=== PATIENT | female | born 1955 | race Caucasian/White ===

== ENCOUNTER 2016-06-15 20:47 | Emergency (ER) | payer MEDICAID ==
[~2016-06-15] VITALS: Ht 152.4 cm; Wt 64.4 kg
[2016-06-15 21:01] VITALS: BP 150/79
[2016-06-15] MEDS ORDERED: ALPRAZOLAM0.5 M3 PO (21:05)
[2016-06-15] MEDS ORDERED: OMEPRAZOLE DR20 M1 PO (21:06)
--- NOTE | 2016-06-15 21:42 | NUR ---
PT TAKEN TO BED 3
--- NOTE | 2016-06-15 22:10 | NUR ---
61Y FEMALE BIB DAUGHTER C/O OF RUQ PAIN RAD TO BACK. DENIES N/V/D PAIN 8/10 IN SCALE.
[2016-06-15] MEDS ORDERED: KETOROLAC 30 MG/ML VIAL IM ONE (22:20)
[2016-06-16 00:40] VITALS: BP 139/85
--- NOTE | 2016-06-16 00:40 | NUR ---
Patient discharged with v/s stable. Written and verbal after care instructions given and explained BY DR VILLANUEVA. Patient alert, oriented and verbalized understanding of instructions. Ambulatory with steady gait. All questions addressed prior to discharge. ID band removed. Patient advised to follow up with PMD. Rx of BENTYL given. Patient educated on indication of medication including possible reaction and side effects. Opportunity to ask questions provided and answered.
== END 2016-06-16 00:40 | disposition home or self-care (01) ==
LOC: MED 20:47
DX: R10.9 Unspecified abdominal pain (principal)
CPT/HCPCS: 36415; 74176; 80053; 81001; 83690; 85025; 96372; 99285; J1885

== ENCOUNTER 2016-06-23 19:25 | Emergency (ER) | payer MEDICAID ==
[~2016-06-23] VITALS: Ht 144.8 cm; Wt 64.4 kg
[~2016-06-23 19:25] MED LIST: ALPRAZOLAM0.5 M3 PO; OMEPRAZOLE DR20 M1 PO
--- NOTE | 2016-06-23 19:43 | NUR ---
PT TAKEN TO OF
--- NOTE | 2016-06-23 19:45 | NUR ---
Dr. Gaston evaluating patient
[2016-06-23] MEDS ORDERED: HYDROcodone/APAP 5/325 MG 1 TAB TAB PO ONE (19:50)
--- NOTE | 2016-06-23 19:50 | NUR ---
61Y/F PATIENT BIB DAUGHTER TO ED WITH C/O RASH, PATIENT STATES RASH AND BLISTER TO BODY AND UPPER BACK; SKIN IS PINK/WARM/DRY, NOTED RASH TO BODY; AAOX4 WITH EVEN AND STEADY GAIT; LUNGS CLEAR BL; HR EVEN AND REGULAR; PT DENIES ANY FEVER, CP, SOB, OR COUGH AT THIS TIME; PATIENT STATES PAIN OF 3/10 AT THIS TIME; VSS; NO S/SX OF DISTRESS AT THIS TIME. ER MD MADE AWARE OF PT STATUS.
[2016-06-23 19:59] VITALS: BP 131/77
--- NOTE | 2016-06-23 20:00 | NUR ---
Patient discharged with v/s stable. Written and verbal after care instructions given and explained. Patient alert, oriented and verbalized understanding of instructions. Ambulatory with steady gait. All questions addressed prior to discharge. ID band removed. Patient advised to follow up with PMD. Rx of NORCO 5/325 MG, NAPROSYN 500 MG, ACYCLOVIR 800 MG given. Patient educated on indication of medication including possible reaction and side effects. Opportunity to ask questions provided and answered.
== END 2016-06-23 20:00 | disposition home or self-care (01) ==
LOC: MED 19:25
DX: B02.9 Zoster without complications (principal); R10.9 Unspecified abdominal pain

== ENCOUNTER 2022-04-26 21:38 | Emergency (ER) | payer MEDICAID ==
[~2022-04-26] VITALS: Ht 152.4 cm; Wt 64.4 kg
[~2022-04-26 21:38] MED LIST changes: +ALPR0.5O4 PO; -ALPRAZOLAM0.5 M3 PO; +OMEP-100 PO; -OMEPRAZOLE DR20 M1 PO
[2022-04-26 22:34] VITALS: BP 143/79
--- NOTE | 2022-04-26 22:37 | NUR ---
TO LOBBY A/W BED AMBULATORY
[2022-04-27] MEDS ORDERED: IBUP-2809 PO (01:02)
--- NOTE | 2022-04-27 01:40 | NUR ---
Note namanone in EDM - 04/27/22 at 0332 by MED Patient discharged with v/s stable. Written and verbal after care instructions given and explained. Patient alert, oriented and verbalized understanding of instructions. Ambulatory with steady gait. All questions addressed prior to discharge. ID band removed. Patient advised to follow up with PMD. Rx of IBUPROFEN given. Patient educated on indication of medication including possible reaction and side effects. Opportunity to ask questions provided and answered.
--- NOTE | 2022-04-27 01:40 | NUR ---
Patient discharged with v/s stable. Written and verbal after care instructions given and explained. Patient verbalized understanding. Ambulatory with steady gait. All questions addressed prior to discharge. Advised to follow up with PMD.
== END 2022-04-27 01:40 | disposition home or self-care (01) ==
LOC: MED 21:38
DX: S69.91XA Unspecified injury of right wrist, hand and finger(s), initial encounter (principal); X58.XXXA Exposure to other specified factors, initial encounter; Y93.89 Activity, other specified; Y92.89 Other specified places as the place of occurrence of the external cause; Y99.8 Other external cause status
CPT/HCPCS: 73140; 99283